=== PATIENT | male | born 1945 | race Caucasian/White ===

== ENCOUNTER 2018-10-13 11:36 | Inpatient (IN) | payer MEDICARE, BC ==
[~2018-10-13] VITALS: Ht 177.8 cm; Wt 80.3 kg
[2018-10-13] VITALS (18 sets, daily range): BP systolic 103–138; BP diastolic 51–75; BMI 26.4
--- NOTE | ~2018-10-13 | OP ---
PATIENT NAME: AIDA BLACKMON MEDICAL RECORD: [id number] :49 LOCATION:[facility] ADMISSION DATE:10/13/18 SURGEON: SHANTHI AVILA MD DATE OF OPERATION: 10/13/2018 PROCEDURES: 1. PTCA and stent, RCA PLV. 2. Left heart catheterization. 3. Selective coronary angiography. 4. Left ventriculogram. INDICATION: Non-Q-wave myocardial infarction. DESCRIPTION OF PROCEDURE: After informed consent was obtained with detailed explanation of risks and benefits as well as alternative therapies, the patient elected to proceed with angiogram and angioplasty. The right femoral area was prepped and draped in normal sterile fashion. The right femoral artery was cannulated via modified Seldinger technique with placement of 6-Belarusian sheath. All catheters were exchanged through this sheath. FINDINGS: Left ventriculogram performed in standard 30-degree NANCE view reveals global hypokinesis. Ejection fraction 40%. SELECTIVE CORONARY ANGIOGRAPHY: 1. Left main has got a questionable stenosis. It will be better delineated by IVUS. 2. Left anterior descending has a large diagonal system. It has 95% stenosis at the ostium. 3. Left circumflex appears to have 90% stenosis at the ostium and the ramus intermedius as well has 90% stenosis at the ostium. 4. First obtuse marginal has 80% to 90% stenosis in the mid proximal vessel. 5. Right coronary has very large bifurcating PLV system. Both branches have DELMI 1 flow with 95% to 99% stenosis. PTCA AND STENT OF THE PLV: The inferior branch was addressed with a 2.0 x 26 and a 2.0 x 26, both Garfield stents. Result was 0% residual stenosis. Superior branch of the PLV was addressed with a 2.5 x 8 mm Garfield. Result was 0% residual stenosis. OVERALL IMPRESSION: Successful PTCA and stent of the RCA PLV, going from 99% initial stenosis with DELMI 1 flow to 0% residual stenosis with methodist of DELMI 3 flow. TRANSINT:[id number] Voice Confirmation ID: [id number] DOCUMENT ID: [id number] SHANTHI AVILA MD CC: [id number] DICTATION DATE: 10/13/18 1546 DIGITAL PRODUCTION ARTIST: 10/13/18 1754 [place] [address]
--- NOTE | ~2018-10-13 | EC ---
PATIENT:AIDA BLACKMON DATE OF SERVICE: 10/13/18 SEX: M MEDICAL RECORD: [id number] DATE OF : [birth year] LOCATION:[place] [address] AGE OF PATIENT: 73 ADMISSION DATE: 10/13/18 REFERRING PHYSICIAN: INTERPRETING PHYSICIAN: SHANTHI QUAN MD ECHOCARDIOGRAM REPORT ECHO CHARGES 4 ECHO COMPLETE Date: 10/14/18 CLINICAL DIAGNOSIS: ME ECHOCARDIOGRAPHIC MEASUREMENTS (adult normal given) AC root (d.<3.7cm) 2.9 cm LV Septum d (<1.2 cm> 0.9 cm Valve Excursion 1.9 cm LV Septum (systole) 1.2 cm Left Atria (s.<4.0cm> 4.3 cm LVPW d(<1.2cm) 1.1 cm RV (d.<2.3cm) 3.6 cm LVPW (sytole) 1.4 cm LV diastole(<5.6CM) 6.2 cm MV E-F(>70mm/sec) cm LV systole 5.0 cm LVOT Diameter 2.2 cm MV exc.(>10mm) cm Est.ejection fraction (50-75%) % DOPPLER: LVIT cm/sec A 57 cm/sec E 48 cm/sec LA cm/sec RVSP 36.6 mmHg LVOT 109 cm/sec AOP1/2T m/s Asc. Ao 125 cm/sec RVOT 64 cm/sec RA cm/sec PA 88 cm/sec AV Gradient Peak 6.2 mmHg AV Mean 3.3 mmHg AV Area 3.1 cm MV Gradient Peak 2.4 mmHg MV Mean 1.3 mmHg MV Area cm COMMENTS: Automatic Buffing Wheel Former: Sarita MCKENZIE Railcar Switcher: 1 Dr. Quan TAPE# PACS Pericardial Effusion N DATE OF SERVICE: 10/14/2018 DATE OF SERVICE: 10/14/2018 FINDINGS: 1. Left ventricular chamber size is dilated. Left ventricular systolic function is moderately reduced to severely reduced at 30%. 2. Left atrium is enlarged at 4.3 cm. Right atrium and right ventricular chamber sizes are as well mildly dilated. 3. Valvular structures have normal structure and motion. ECHOCARDIOGRAM REPORT [id number] AIDA BLACKMON 4. Doppler interrogation reveals mild mitral regurgitation, mild tricuspid regurgitation, no other valvular insufficiency or stenosis. Pulmonary systolic pressure is estimated at 37 mmHg. 5. No evidence of pericardial effusion or left ventricular thrombus. TRANSINT:[id number] Voice Confirmation ID: [id number] DOCUMENT ID: [id number] SHANTHI QUAN MD CC: [id number] DICTATION DATE: 10/14/18 1025 HOMEMAKING REHABILITATION CONSULTANT: 10/14/18 1047 ADM IN [facility] [address] [place] [address]
--- NOTE | ~2018-10-13 | DS ---
PATIENT:AIDA BLACKMON :49 MEDICAL RECORD: [id number] DISCHARGE SUMMARY ADMISSION DATE: 10/13/18 DISCHARGE DATE: 10/14/18 DIAGNOSES: 1. Non-Q-wave myocardial infarction. 2. Coronary artery disease. 3. Percutaneous transluminal coronary angioplasty and stent to the right coronary artery this admission. 4. Ischemic cardiomyopathy. BRIEF HISTORY: Mr. Blackmon presents with anginal symptomatology. Troponin did increase to 10, he underwent cardiac catheterization revealing subtotal stenosis of the PLV branch of the RCA. This was a long branch extending to the lateral wall and he underwent successful PTCA and stents of these branches, he had no further anginal symptomatology. He is already on carvedilol, was discharged home with the addition of aspirin, Plavix, pravastatin to his medical regimen. Will follow up with [facility] on Saturday for PTCA and stent of circumflex and LAD diagonal. TRANSINT:[id number] Voice Confirmation ID: [id number] DOCUMENT ID: [id number] SHANTHI AVILA MD CC: [id number] DICTATION DATE: 10/14/18 1040 MANAGER TALENT MANAGEMENT: 10/14/18 2346 DIS IN 10/14/18 [place] [address] [place] [address]
--- NOTE | ~2018-10-13 | HEMODYNAMI ---
PATIENT:AIDA BLACKMON MEDICAL RECORD: [id number] : 49 LOCATION:[place] [address] ADMISSION DATE: 10/13/18 Generatedon:10/13/201815:43 Patient name: AIDA BLACKMON Patient #: [id number] SSN: : 1945 Date of study: 10/13/2018 Page: Of Hemodynamic Procedure Report Patient Data Patient Demographics Procedure consent was obtained First Name: AIDA Gender: Male Last Name: LORRI : 1945 [facility] Initial: OTIS Age: 73 year(s) Patient #: [id number] Race: Additional ID: [id number] Contact details Address: [place] [address] State: [place] City: [place] Zip code: [address] Past Medical History Allergies: No known allergies Admission Admission Data Admission Date: 10/13/2018 Admission Time: 12:23 Room #: [facility] Weight (lbs.): 169.76 Weight (kg.): 77 Procedure Procedure Types Cath Procedure Diagnostic Procedure [facility] w/Coronaries PCI Procedure Coronary Stent Coronary Stent Initial Procedure Description Procedure Date Procedure Date: 10/13/2018 Procedure Start Time: 15:07 Procedure End Time: 15:42 Procedure Staff Name Function Daniel Quan MD Performing Physician Darinel Starr RT Monitor Jillian Sun RT Scrub Brittany Belcher RN Nurse Procedure Data Cath Procedure Fluoroscopy Diagnostic fluoroscopy Total fluoroscopy Time: 8.9 time: 8.9 min min Diagnostic fluoroscopy Total fluoroscopy dose: dose: 1588 mGy 1588 mGy Contrast Material Contrast Material Type Amount (ml) Isovue 300 163 Entry Location Entry Primary Successful Side Size Upsize Upsize Entry Closure Succes sful Closure Location (Fr) 1 (Fr) 2 (Fr) Remarks Device Remarks Femoral Right 6 Fr 6 Fr Exoseal artery Short Long Estimated blood loss: 20 ml Diagnostic catheters Device Type Used For End Catheter Placement MULTIPACK Pigtail 5 Fr Procedure catheter MULTIPACK JL 4.0 5Fr Procedure catheter MULTIPACK 3DRC 5Fr Procedure catheter Procedure Medications Medication Administration Route Dosage 0.9% NaCl I.V. 100 ml/hr Oxygen etCO2 Nasal cannula 2 l/min Lidocaine 2% added to field 20 Heparin Flush Bag added to field 2 bags (1000units/500ml NS) Versed I.V. 2 mg Fentanyl I.V. 50 mcg Heparin Bolus I.V. 5000 units Fentanyl I.V. 50 mcg Hemodynamics Rest Heart Rate: 70 (bpm) Snapshots Pre Cath Intra NCS Post Cath Vital Signs Time Heart Resp SPO2 etCO2 NIBP (mmHg) Rhythm Pain Sedation Rate (ipm) (%) (mmHg) Status Level (bpm) 14:55:44 66 13 97 30 139/96(117) NSR 0 (11) 10(A) , No pain 14:59:43 63 12 97 35.2 136/71(107) NSR 0 (11) 10(A) , No pain 15:03:45 70 18 98 17.2 127/63(89) NSR 0 (11) 10(A) , No pain 15:07:47 63 17 98 30 121/62(86) NSR 0 (11) 10(A) , No pain 15:11:47 65 17 97 23.9 112/62(89) NSR 0 (11) 9(A) , No pain 15:16:29 63 17 98 32.2 120/57(90) NSR 0 (11) 9(A) , No pain 15:20:33 66 12 97 32.2 104/57(78) NSR 0 (11) 9(A) , No pain 15:25:16 64 11 97 33.7 112/64(79) NSR 0 (11) 9(A) , No pain 15:29:11 57 17 98 29.2 115/67(88) NSR 0 (11) 10(A) , No pain 15:33:04 56 16 95 32.2 118/75(96) NSR 0 (11) 10(A) , No pain 15:37:00 56 17 95 33.7 117/71(85) NSR 0 (11) 10(A) , No pain 15:41:00 59 17 94 32.2 116/71(88) NSR 0 (11) 10(A) , No pain Medications Time Medication Route Dose Verified Delivered Reason Notes Effectiveness by by 14:55:03 0.9% NaCl I.V. 100 Daniel Brittany used for ml/hr Avelina Belcher stain remover 14:55:10 Oxygen etCO2 2 Daniel Brittany used for Nasal l/min Avelina Belcher procedure cannula RN 14:55:15 Lidocaine 2% added 20ml Daniel Daniel for local to vial Avelina Quan MD anesthetic field 14:55:20 Heparin Flush added 2 Daniel Daniel used for Bag to bags Avelina Quan MD procedure (1000units/500ml field NS) 15:03:17 Versed I.V. 2 mg Daniel Brittany for sedation Avelina Belcher RN 15:03:23 Fentanyl I.V. 50 Daniel Brittany for sedation mcg Avelina Belcher RN 15:08:12 Fentanyl I.V. 50 Daniel Brittany for sedation mcg Avelina Belcher RN 15:13:56 Heparin Bolus I.V. 5000 Daniel Brittany for verif ied units Avelina Belcher anticoagulation with Dr. JIMMY Quan Procedure Log Time Note 14:35:16 Time tracking: Regular hours (M-F 7:00 - 5:00) 14:35:19 Plan of Care:Hemodynamics will remain stable., Cardiac rhythm will remain stable., Comfort level will be maintained., Respiratory function will remain adequate., Patient/ family verbilizes understanding of procedure., Procedure tolerated without complication., Recovers from procedure without complications.. 14:35:21 Signed procedure consent form obtained from patient. 14:35:48 Darinel Starr RT(R) (CV) sent for patient. Start room use. 14:36:49 Patient Weight : 169.76 lbs 14:37:13 Procedure Status Urgent Heart Cath (IP). 14:46:38 Patient received from ED to CCL 2 Alert and oriented. Tansferred to table in Supine position. 14:46:39 Warm blankets applied, and hugo hugger turned on for patient comfort. 14:46:39 Correct patient and procedure confirmed by team. 14:46:40 ECG and BP/O2 sat monitors applied to patient. 14:54:52 Vital chart was started 14:55:03 0.9% NaCl 100 ml/hr I.V. was administered by Brittany Belcher RN; used for procedure; 14:55:10 Oxygen 2 l/min etCO2 Nasal cannula was administered by Brittany Belcher RN; used for procedure; 14:55:15 Lidocaine 2% 20ml vial added to field was administered by Daniel Quan MD; for local anesthetic; 14:55:20 Heparin Flush Bag (1000units/500ml NS) 2 bags added to field was administered by Daniel Quan MD; used for procedure; 14:58:23 Baseline sample Acquired. 14:58:35 Rhythm: sinus rhythm , bigeminy 14:58:37 Full Disclosure recording started 14:58:46 H&P Date Dictated: 10/13/2018 ER History on chart.. 14:58:49 Pre-procedure instructions explained to patient. 14:58:50 Pre-op teaching completed and patient verbalized understanding. 14:58:54 Family in waiting room. 14:59:03 Patient NPO since Breakfast. 14:59:09 Patient allergic to No known allergies 14:59:13 Is the patient allergic to Iodine/contrast media? No. 15:00:35 Is patient on blood thinner?Yes 15:00:45 ACC The patient was administered the following blood thiners within the last 24 hours: ACCPlavix 15:00:50 Patient diabetic? No. 15:00:53 ----Pre-sedation anethsthesia assessment.---- 15:00:55 Previous problem with sedation/anesthesia? No ? 15:00:57 Snore? Yes 15:00:58 Sleep apnea? Yes 15:01:00 Deviated septum? No 15:01:01 Opens mouth fully? Yes 15:01:02 Sticks out tongue? Yes 15:01:05 Airway obstruction? No ? 15:01:09 Dentures? No ? 15:01:18 IV patent on arrival in right forearm with 0.9% NaCl at [facility]. 15:01:50 Right groin area was prepped with chlora-prep and draped in sterile fashion 15:01:51 Alarms reviewed by RNavi N. 15:01:52 Sharps counted by scrub and verified by R.N. 15:02:16 Physician arrived 15:02:16 --------ALL STOP TIME OUT------ 15:02:17 Final Timeout: patient, procedure, and site verified with staff and physician. All members of the team are in agreement. 15:02:19 Right groin site verified by team. 15:02:25 Fire Safety Assessment: A--An alcohol-based skin anteseptic being used preoperatively., C--Open oxygen or nitrous oxide is being used., D--An ESU, laser, or fiber-optic light is being used. 15:02:58 Physical assessment completed. ASA score P 2 - A patient with mild systemic disease as per Daniel Quan MD. 15:03:17 Versed 2 mg I.V. was administered by Brittany Belcher RN; for sedation; 15:03:23 Fentanyl 50 mcg I.V. was administered by Brittany Belcher RN; for sedation; 15:05:59 Sedation plan: IV Moderate Sedation Medication:Versed, Fentanyl 15:06:43 Use device set Femoral Dx 15:06:44 ACIST Syringe (58183) opened to sterile field. 15:06:45 Bag Decanter (2002S) opened to sterile field. 15:06:45 Medline Cath Pack ([id number]) opened to sterile field. 15:06:47 ACIST Hand Control (70595) opened to sterile field. 15:06:48 ACIST Manifold (72829) opened to sterile field. 15:06:49 DIAGNOSTIC Multipack 5Fr catheter set (PA8135) opened to sterile field. 15:06:50 Tegaderm 4 x 4 (1626W) opened to sterile field. 15:06:52 EMERALD Guide Wire (832-377) opened to sterile field. 15:07:06 SHEATH 6FR Kenna (HZO590) opened to sterile field. 15:07:13 Procedure started. 15:07:17 Local anesthetic to right femoral artery with Lidocaine 2% by Daniel Quan MD.INITIAL ACCESS ONLY 15:07:29 A 6 Fr Short sheath was inserted into the Right Femoral artery 15:07:42 A MULTIPACK Pigtail 5 Fr catheter was advanced over the wire and used for Procedure. 15:07:46 LV hemodynamics recorded. 15:07:54 EF : 40 % 15:07:58 LV gram done using NANCE 15:08:01 Catheter removed. 15:08:12 Fentanyl 50 mcg I.V. was administered by Brittany Ye RN; for sedation; 15:08:14 A MULTIPACK JL 4.0 5Fr catheter was advanced over the wire and used for Procedure. 15:08:40 LCA angiography performed. 15:09:37 Catheter removed. 15:09:51 A MULTIPACK 3DRC 5Fr catheter was advanced over the wire and used for Procedure. 15:10:41 RCA angiography performed. 15:12:24 CHOICE PT Extra Support 182cm wire ([id number]) opened to sterile field. 15:12:25 GUIDE 6FR HS II SH catheter ([id number]) opened to sterile field. 15:12:26 INFLATOR Merit BasixCompak (HE1729) opened to sterile field. 15:12:39 Catheter removed. 15:12:41 Proceeding to intervention. 15:13:56 Heparin Bolus 5000 units I.V. was administered by Brittany Belcher RN; for anticoagulation; verified with Dr. Quan 15:14:03 Pre PCI Site: [place] PLB has 99% stenosis. 15:14:52 6 Fr HS2 SH guide catheter was inserted over the wire 15:15:07 Guide Catheter removed. unable to cannulate vessel. 15:15:20 GUIDE 6FR AR 2.0 SH catheter ([id number]) opened to sterile field. 15:15:32 6 Fr AR 2 SH guide catheter was inserted over the wire 15:15:37 Guide Catheter removed. unable to cannulate vessel. 15:15:56 SHEATH 6FR ARROW 45cm (CL-81194) opened to sterile field. 15:16:12 Sheath upsized to a 6 Fr Long. 15:16:39 6 45 ARROW ADVANCED 15:16:52 6 Fr AR 2 SH guide catheter was inserted over the wire 15:17:27 CHOICE wire advanced. 15:18:43 Wire advanced across lesion. 15:20:28 Inflate balloon Inflation number: 1 A EUPHORA 2.0 x 15 Balloon ([id number]) was prepped and advanced across the 1st RPL 100, then inflated to 11 GAIL for 0:10 (min:sec) 80. 15:21:36 Inflation number: 2 The EUPHORA 2.0 x 15 Balloon ([id number]) was reinflated across the 1st RPL 80, to 13 GAIL for 0:10 (min:sec) . 15:21:42 Balloon removed over the wire. 15:22:54 Inflate balloon Inflation number: 3 A EUPHORA 1.5 x 15 Balloon ([id number]) was prepped and advanced across the 1st RPL 80, then inflated to 17 GAIL for 0:10 (min:sec) . 15:23:08 Inflation number: 4 The EUPHORA 1.5 x 15 Balloon ([id number]) was reinflated across the 1st RPL , to 21 GAIL for 0:10 (min:sec) . 15:23:33 Balloon removed over the wire. 15:25:39 Place stent Inflation Number: 5 A MARCIE RX 2.0 x 26 stent ([id number]) was prepped and advanced across the 1st RPL 80. The stent was deployed at 11 GAIL for 0:10 (min:sec) 0. 15:26:36 Stent catheter was removed intact over wire. 15:27:09 Place stent Inflation Number: 6 A MARCIE RX 2.0 x 26 stent ([id number]) was prepped and advanced across the 1st RPL 80. The stent was deployed at 15 GAIL for 0:10 (min:sec) 0. 15:27:47 Stent catheter was removed intact over wire. 15:30:47 Place stent Inflation Number: 7 A MARCIE RX 2.5 x 08 stent ([id number]) was prepped and advanced across the 1st RPL 80. The stent was deployed at 13 GAIL for 0:10 (min:sec) 0. 15:31:41 Stent catheter was removed intact over wire. 15:31:42 Wire removed. 15:31:44 Guide catheter removed. 15:32:15 BACK IN WITH SHORT SHEATH, 6 45 ARROW REMOVED INTACT 15:32:28 EXOSEAL 6Fr (EX600) opened to sterile field. 15:32:54 Sheath removed intact; hemostasis achieved with Exoseal to the Right Femoral artery. 15:32:58 Procedure ended.(Physican Out) 15:33:40 Fluoroscopy time 08.90 minutes. 15:33:57 Fluoroscopy dose: 1588 mGy 15:33:57 Flurop Dose total: 1588 15:35:08 Dose Area Product 45581 mGy/cm. 15:36:40 Cumulative Air Kerma 111mGy. 15:36:49 Contrast amount:Isovue 300 163ml. 15:36:59 Sharps counted by scrub and verified by R.N. 15:39:11 Procedure type changed to Cath procedure, Diagnostic procedure, LHC, LHC w/Coronaries, PCI procedure, Coronary Stent, Coronary Stent Initial 15:40:45 Insertion/operative site no bleeding no hematoma. 15:40:49 Post-op/insertion site Right Femoral artery dressed using a 4 x 4 and Tegaderm. 15:40:54 Post right femoral artery:stable 15:41:07 Post procedure: right dorsailis pedis pulse 2+ Normal; easily identifiable; not easily obliterated. 15:41:12 Post-procedure physical assessment completed. ASA score P 2 - A patient with mild systemic disease as per Daniel Quan MD. 15:41:18 Post procedure rhythm: sinus rhythm 15:41:21 Estimated blood loss: 20 ml 15:41:23 Post procedure instruction explained to patient.Patient verbalizes understanding. 15:41:32 Patient needs reinforcement of post procedure teaching. 15:42:02 Procedure and supply charges have been captured, reviewed, submitted and are correct. 15:42:02 Vital chart was stopped 15:42:04 See physician's report for complete and final results. 15:42:17 Report given to CVICU. 15:42:22 Patient transfered to CVICU with Bed. 15:42:24 Procedure ended. 15:42:24 Full Disclosure recording stopped 15:42:28 End room use (Document Last) Intervention Summary Intervention Notes Time ActionType Lesion and Equipment Used Action# Pressure Duration Attributes 15:20:28 Inflate 1st RPL EUPHORA 2.0 x 1 11 00:10 balloon 15 Balloon ([id number]) 15:21:36 Reinflate 1st RPL EUPHORA 2.0 x 2 13 00:10 balloon 15 Balloon ([id number]) 15:22:54 Inflate 1st RPL EUPHORA 1.5 x 3 17 00:10 balloon 15 Balloon ([id number]) 15:23:08 Reinflate 1st RPL EUPHORA 1.5 x 4 21 00:10 balloon 15 Balloon ([id number]) 15:25:39 Place stent 1st RPL MARCIE RX 2.0 x 5 11 00:10 26 stent ([id number]) 15:27:09 Place stent 1st RPL MARCIE RX 2.0 x 6 15 00:10 26 stent ([id number]) 15:30:47 Place stent 1st RPL MARCIE RX 2.5 x 7 13 00:10 08 stent ([id number]) Device Usage Item Name Manufacture Quantity Catalog Number Hospital Part Current M inimal Lot# / Charge Number Stock Stock Serial# Code ACIST Syringe Acist 1 14351 841502 407527 391358 2 0 (86307) Medical Systems Inc Bag Decanter Microtek 1 2001S 410512 10540 775838 5 () Medical Inc. Medline Cath Medline 1 [id number] 491159 43544 049293 5 Pack ([id number]) ACIST Hand Acist 1 73853 347720 580909 491254 5 Control Medical (50672) Systems Inc ACIST Manifold Acist 1 94016 574923 846777 934780 5 (05604) Medical Systems Inc DIAGNOSTIC Cardinal 1 KL8643 593129 12848 555740 3 0 Multipack 5Fr Health catheter set (SA3952) Tegaderm 4 x 4 3M 1 1626W 801621 534052 209056 5 (1626W) EMERALD Guide Cardinal 1 502-455 640105 027164 701896 5 Wire (502-455) Health SHEATH 6FR Terumo 1 MEI283 847149 649150 310125 4 0 Kenna (UZX736) MULTIPACK Cardinal 1 725739 5 Pigtail 5 Fr Health catheter MULTIPACK JL Cardinal 1 303397 5 4.0 5Fr Health catheter MULTIPACK 3DRC Cardinal 1 275904 5 5Fr catheter Health CHOICE PT [place] 1 [id number] 442547 877541 079078 5 Extra Support Scientific 182cm wire ([id number]) GUIDE 6FR HS Medtronic 1 [id number] 466140 57382 651842 1 II SH catheter ([id number]) INFLATOR Merit Merit 1 AJ6335 026058 470146 484540 1 5 TechShop Medical (SD4341) GUIDE 6FR AR Medtronic 1 [id number] 682571 65801 983973 1 2.0 SH catheter ([id number]) SHEATH 6FR Teleflex 1 CL-82625 562566 952125 506708 5 ARROW 45cm (CL-81004) EUPHORA 2.0 x Medtronic 1 [id number] 659073 677118 586069 5 [id number] 15 Balloon ([id number]) EUPHORA 1.5 x Medtronic 1 [id number] 076882 757767 779246 5 [id number] 15 Balloon ([id number]) MARCIE RX 2.0 x Medtronic 2 [id number] 693815 7376687 428097 5 [id number] 26 stent [id number] ([id number]) MARCIE RX 2.5 x Medtronic 1 [id number] 687693 9070238 200520 5 [id number] 08 stent ([id number]) EXOSEAL 6Fr Cardinal 1 EX600 231228 154866 397713 1 0 (EX600) Health Signature Audit [place] Stage Time Signature Unsigned Intra-Procedure 10/13/2018 Darinel Starr 3:43:07 PM RT(R) (CV) Signatures Performing Physician : Signature : Daniel Quan MD Date : Time : Monitor : Darinel Starr RT Signature : Date : Time : Nurse : Brittany Belcher RN Signature : Date : Time : [facility] [address], [place] [address]
[2018-10-13] MEDS ORDERED: PROSCAR5 MG PO (12:06)
[2018-10-13] MEDS ORDERED: COREG6.25 MG PO (12:07)
[2018-10-13] MEDS ORDERED: CARDURA4 MG PO (12:07)
--- NOTE | 2018-10-13 12:20 | NUR ---
DEFIB PADS APPLIED TO PT PER VERBAL ORDER PER EDP AFTER PT'S HR REMAINED BRADYCARDIC AT 28-34BPM. PT REMAINS ALERT AND ORIENTED, CONTINUES TO DENY PAIN.
--- NOTE | 2018-10-13 14:12 | NUR ---
PT SITTING IN SEMI-BABIN'S, ALERT AND ORIENTED. NO SINGS OF DISTRESS. CALL LIGHT IN REACH, AWAITING BED ASSIGNMENT. WILL CONTINUE TO MONITOR.
[2018-10-13 14:37] LABS: CKMB 65.9 U/L (0.0-3.6); CREATINE KINASE 317 UL (21-232)
[2018-10-13 14:40] LABS: TROPONIN-I 10.375 ng/mL (0.000-0.060)
--- NOTE | 2018-10-13 16:00 | NUR ---
PT ARRIVED IN THE UNIT. PT VSS. PT IN A BIJIMINAL BEAT RATE 61. O2 AT 2L IV ANC. PT A&O X4. RIGHT GROIN DRESSING C/D/I. NO HEMATOMA NOTED. PT INSTRUCTED TO HAVE STRICT BED REST FOR 4HOURS PER DR AVILA. BILATEARL DP AND TP PULSES PALPABLE. CALL LIGHT IN REACH. WILL CONT POC.
--- NOTE | 2018-10-13 18:09 | NUR ---
GROIN SHOW NO S/SX OF HEMATOMA. SOFT AND PALPABLE. BILATERAL DP AND PT PULSES PALPABLE. VSS. WILL CONT POC.
--- NOTE | 2018-10-13 18:57 | NUR ---
PT TOLERATING ICE CHIPS AND PO FLUIDS WELL. GROIN SITE AND PULSES REMAIN UNCHANGED.
--- NOTE | 2018-10-13 19:08 | NUR ---
SPOKE WITH DR AVILA ABOUT THE PTS INSULIN ORDER. PT STATES HE IS NOT DIABETIC AND THAT HE DOES NOT TAKE INSULIN. INSULIN DC'D PER DR AVILA.
--- NOTE | 2018-10-13 19:15 | NUR ---
Received patient resting in bed with eyes open, assessment completed per flowsheet. Patient AO x4, answers appropriately/follows instructions. S1/S2 noted Sinus Prabhu on telemetry with HR 58, rythmic and regular. Breathing is even/unlabored on room air with O2 sat 95%, lung sounds clear throughout. R groin incision dressing CDI, soft to palpation with no bleeding/bruising noted. All pulses palpable with cap refill < 3 sec, skin warm/dry. Denies pain or other needs at this time, see flowsheet for details. All VSS and will continue to monitor.
[2018-10-13 20:34] LABS: CREATINE KINASE 270 UL (21-232)
[2018-10-13 20:35] LABS: TROPONIN-I 10.772 ng/mL (0.000-0.060)
--- NOTE | 2018-10-13 21:10 | NUR ---
Patient family at bedside, discussed post-op/discharge plans with all questions answered to satisfaction. Denies pain or other needs at this time, all VSS and will continue to monitor.
--- NOTE | 2018-10-13 23:05 | NUR ---
Reassessment completed per flowsheet, no changes noted from previous assessment. S1/S2 noted Sinus Prabhu on telemetry with HR 58, ryhtmic and regular. Breathing is even/unlabored on room air with O2 sat 93%, lung sounds clear throughout. R groin cath site soft to palpation, no bleeding/bruising noted. All pulses palpable with cap refill < 3 sec, skin warm/dry. Denies pain or other needs at this time, see flowsheet for details. All VSS and will continue to monitor.
[2018-10-14] VITALS (12 sets, daily range): BP systolic 99–122; BP diastolic 49–74; Ht 177.8 cm; Wt 80.3 kg
--- NOTE | 2018-10-14 01:10 | NUR ---
Patient assisted to bathroom at request, gait is upright/steady. No reported difficulties, R groin cath site dressing CDI, no bleeding/bruising observed. All VSS and will continue to monitor.
--- NOTE | 2018-10-14 01:45 | NUR ---
Patient rhythm change to Bigeminal PVC on telemetry, patient states no pain/discomfort at this time with BP 122/66 and HR 63.
--- NOTE | 2018-10-14 02:04 | NUR ---
Patient rhythm converted to NSR on telemetry with HR 69, will continue to monitor.
--- NOTE | 2018-10-14 02:55 | NUR ---
Patient rhythm no josy to be Sinus with Trigeminal PVC on telemetry, BP 107/47 with HR 70. Patient denies discomfort/pain at this time, no further needs and will continue to monitor.
--- NOTE | 2018-10-14 03:10 | NUR ---
Reassessment completed per flowsheet. Patient AO x4, answers appropriately/follows instructions. S1/S2 noted NSR with Trigeminal PVC noted on telemetry and HR 68, regular. Breathing is even/unlabored on room air with O2 sat 93%, lung sounds clear throughout. R groin incision dressing CDI, no bleeding/bruising noted. Denies pain/discomfort at this time, see flwosheet for details. All VSS and will continue to monitor.
--- NOTE | 2018-10-14 03:59 | NUR ---
Patient rhythm noted to be NSR with occasional PVC on telemetry and HR 68.
--- NOTE | 2018-10-14 06:15 | NUR ---
Cardiology on-call paged to notify of rhythm changes. Patient appears to have changes post activity, will discuss with physician and awaiting return call.
--- NOTE | 2018-10-14 07:00 | NUR ---
REPORT RECEVIED FROM THE OFF GOING RN. SEE ASSESSMENT IN THE PTS FLOW SHEET. PT ASSISTED OOB AND TO THE BATHROOM. PT NOTED TO HAVE A VERY STEADY AND NORMAL GAIT. VSS. BIGEMINAL RHYTHM NOTED. RIGHT GROIN SOFT TO PALPATION WITH NO BRUISING NOTED. PT DENIES PAIN. BILATERAL DP AND PT PULSES PALPABLE. CALL LIGHT IN REACH. WILL CONT POC.
--- NOTE | 2018-10-14 10:34 | HP ---
PATIENT: AIDA BLACKMON MEDICAL RECORD: [id number] ACCOUNT: [id number] LOCATION:[facility] EricCV06 : [birth year] ADMISSION DATE: 10/13/18 PCP: No PCP HISTORY AND PHYSICAL EXAMINATION DIAGNOSES: 1. Non-Q-wave myocardial infarction. 2. Coronary artery disease. 3. Hypertension. HISTORY OF PRESENT ILLNESS: This is a gentleman who began having chest discomfort yesterday, presented to [facility], has a troponin of 5. Upon arrival here, he did have some bradycardia, was given atropine. He is now with sinus rhythm at 70s. He has no ST depression, but he does have T-wave inversion in his lateral leads. PHYSICAL EXAMINATION: GENERAL APPEARANCE: Well-nourished, well-developed, appears stated age. Level of distress, comfortable. PSYCHIATRIC: Mental status, alert, normal affect. Orientation, oriented to time, place and person. EYES: Lids and conjunctiva, noninjected. No discharge, no pallor. ENT: Lips, teeth, gums, normal dentition. Oropharynx, no cyanosis, no pallor. NECK: Carotid arteries, bilateral normal upstroke, no bruits, no thrills. JUGULAR VEINS: No jugular venous pressure or distention. CERVICAL LYMPH NODES: Nontender, nonenlarged. THYROID: Not enlarged. Nontender. No nodules. LUNGS: Respiratory effort, unlabored. CHEST: Normal curvature. No thoracic deformity. No chest wall tenderness. Percussion, resonant. Auscultation, clear. No wheezes, no rales, no rhonchi. CARDIOVASCULAR: Precordial exam, nondisplaced. No heaves or pericardial thrills. Rate and rhythm, regular. Heart sounds, normal S1, normal S2. No S3, no gallop, no rub. Systolic murmur, not heard. Diastolic murmur, not heard. EXTREMITIES: No cyanosis, no edema. Peripheral pulses, full and equal in all extremities, except as noted. No bruits appreciated. ABDOMEN: Soft, nondistended. Normal aorta. No bruit. Nontender. No masses. Liver, nontender, no hepatomegaly. Spleen, nontender, no splenomegaly. MUSCULOSKELETAL: No joint tenderness. No joint swelling. No erythema. NEUROLOGICAL: Normal gait, normal strength, normal tone. SKIN: Warm and dry. OVERALL IMPRESSION: Non-Q-wave myocardial infarction. At this time, we will give him Plavix. He has gotten a dose of Lovenox. We will proceed with coronary angiography this afternoon. TRANSINT:[id number] Voice Confirmation ID: [id number] DOCUMENT ID: [id number] HISTORY AND PHYSICAL [id number] AIDA BLACKMON JEFFREY MD at 1034 CC: [id number] DICTATION DATE: 10/13/18 1238 MANAGER PHARMACY: 10/13/18 1322 ADM IN [facility] [address] [place] [address]
--- NOTE | 2018-10-14 10:38 | NUR ---
DR AVILA AT THE PTS BEDSIDE. DISCHARGE ORDERS RECIEVED. PT TO RETURN FOR HEART CATH SATURDAY. DR AVILA ALREADY CALLED AND MADE APPOINTMENTS FOR CATH.
--- NOTE | 2018-10-14 10:45 | NUR ---
DR AVILA GAVE VERBAL ORDERS TO DECREASE COEG TO 3.125 AND CARDURA TO 2MG.
[2018-10-14] MEDS ORDERED: CARDURA2 MG PO (11:16)
[2018-10-14] MEDS ORDERED: PLAVIX75 MG PO (11:16)
[2018-10-14] MEDS ORDERED: COREG 3.1253.125 MG PO (11:16)
[2018-10-14] MEDS ORDERED: BAYER CHEWABLE81 MG PO (11:17)
[2018-10-14] MEDS ORDERED: PRAVACHOL40 MG PO (11:17)
--- NOTE | 2018-10-14 12:08 | MORECARE ---
CASE MANAGEMENT DISCHARGE SUMMARY PATIENT: AIDA BLACKMON UNIT: [id number] ADM DATE: 10/13/18 AGE: 73 : 47 SEX: M [facility] AUTHOR: ANGELA LINDSEY PHYSICIAN: REFERRING PHYSICIAN: SHANTHI AVILA MD DATE OF SERVICE: 10/14/18 Discharge Plan Patient Name: AIDA BLACKMON Facility: [facility]:[place] : 1945 Planned Disposition: Home Anticipated Discharge Date: Discharge Date: Expected LOS: Initial Reviewer: [email or web address] Initial Review Date: 10/14/2018 Generated: 10/14/18 1:08 pm Patient Name: AIDA BLACKMON Page [id number] at 1208 All edits/amendments must be made on the electronic document DICTATION DATE: 10/14/18 120 NON DESTRUCTIVE EVALUATION MANAGER: BERKLEY 10/14/18 1208 RPT#: [id number] DC DATE: STATUS: ADM IN [facility] [address] [place] [address] END OF REPORT
--- NOTE | 2018-10-14 12:16 | MORECARE ---
CASE MANAGEMENT DISCHARGE SUMMARY PATIENT: AIDA BLACKMON UNIT: [id number] ADM DATE: 10/13/18 AGE: 73 : [birth year] SEX: M ROOM/BED: D[facility] AUTHOR: ROSALIA,DOC PHYSICIAN: REFERRING PHYSICIAN: SHANTHI AVILA MD DATE OF SERVICE: 10/14/18 Discharge Plan Patient Name: AIDA BLACKMON Facility: [facility]:[place] : 1945 Planned Disposition: Home Anticipated Discharge Date: Discharge Date: Expected LOS: Initial Reviewer: [email or web address] Initial Review Date: 10/14/2018 Generated: 10/14/18 1:16 pm Comments DCP- Discharge Planning Updated by [email or web address]: Jazlyn Iglesias on 10/14/18 11:[address] Patient Name: AIDA BLACKMON Admission Status: ER Accout number: [id number] Admission Date: 10-13-2018 : 1945 Admission Diagnosis: Attending: FEI AVILA Current LOS: 1 Anticipated DC Date: Planned Disposition: Home Primary Insurance: MEDICARE A & B Discharge Planning Comments: CM met with patient and spouse (Oralia) at bedside after explaining CM role and obtaining verbal consent. Patient lives at home with his and plans to return there upon discharge. Patient feels this would be a safe discharge. CM discussed availability / needs of home health and medical equipment. Patient denies any discharge needs at this time. Patient states he will have his drive him home upon discharge. CM will continue to follow and assist as needed with discharge planning / needs. Chest Pain Coordinator: Jazlyn Iglesias DCPIA - Discharge Planning Initial Assessment Updated by [email or web address]: Jazlyn Iglesias on 10/14/18 12:08 pm * Is the patient Alert and Oriented? Yes * How many steps to enter\exit or inside your home? * PCP DR. MARTINEZ * Pharmacy [facility] * Preadmission Environment Home with Family * ADLs Independent * Equipment None * Other Equipment B/P CUFF * List name and contact numbers for known caregivers / representatives who currently or will assist patient after discharge: CHRISTINA BLACKMON - SPOUSE- [phone] * Verbal permission to speak to the caregivers and representatives has been obtained from the patient. Yes * Community resources currently utilized None * Additional services required to return to the preadmission environment? No * Can the patient safely return to the preadmission environment? Yes * Has this patient been hospitalized within the prior 30 days at any hospital? No Last DP export: 10/14/18 11:08 a Patient Name: AIDA BLACKMON Page 22551 at 1216 All edits/amendments must be made on the electronic document DICTATION DATE: 10/14/18 1216 INDUCTION COORDINATION ENGINEER: BERKLEY 10/14/18 1216 RPT#: [id number] DC DATE: STATUS: ADM IN [facility] [address] [place] [address] END OF REPORT
--- NOTE | 2018-10-14 12:17 | NUR ---
IV DC WITH THE CATHETER TIP INTACT. DC INSTRUCTIONS WENT OVER WITH THE PT. INSTRUCTED THAT HE IS TO TAKE HALF OF HIS COREG AND CARDURA PRESCRIBED. DR AVILA ALREADY MADE F/U CATH APPOINTMENT AT 0900 R SATURDAY AND PT AWARE. PLAVIX AND PRAVACHL RX GIVEN TO THE PT. PT LEFT THE UNIT IN A STABLE CONDITION. WILL CONT POC.
== END 2018-10-14 12:27 | disposition home or self-care (01) | DRG 247 ==
LOC: D.ER 11:36 → D.M2 12:23 → OBSVTIME 12:31 → D.CVICU 12:51
PROVIDERS: Emergency Medicine; ADMIT Internal Medicine Interventional Cardiology; ATTEND Internal Medicine Interventional Cardiology
PROC: B2151ZZ Fluoroscopy of Left Heart using Low Osmolar Contrast (ICD-10-PCS; 2018-10-13)
PROC: 4A023N7 Measurement of Cardiac Sampling and Pressure, Left Heart, Percutaneous Approach (ICD-10-PCS; 2018-10-13)
PROC: 027036Z Dilation of Coronary Artery, One Artery with Three Drug-eluting Intraluminal Devices, Percutaneous Approach (ICD-10-PCS; principal; 2018-10-13 14:35)
PROC: B2111ZZ Fluoroscopy of Multiple Coronary Arteries using Low Osmolar Contrast (ICD-10-PCS; 2018-10-13 14:35)
DX: I21.4 Non-ST elevation (NSTEMI) myocardial infarction (principal); I10 Essential (primary) hypertension; I25.10 Atherosclerotic heart disease of native coronary artery without angina pectoris; I25.5 Ischemic cardiomyopathy

== ENCOUNTER 2018-10-17 08:52 | Outpatient (CLI) | payer MEDICARE, BC ==
[~2018-10-17] VITALS: Ht 177.8 cm; Wt 77.3 kg
--- NOTE | ~2018-10-17 | HEMODYNAMI ---
PATIENT:AIDA BLACKMON MEDICAL RECORD: [id number] : 49 LOCATION:[facility] ADMISSION DATE: 10/17/18 Generatedon:10/17/201811:40 Patient name: AIDA BLACKMON Patient #: [id number] SSN: [id number] : 1945 Date of study: 10/17/2018 Page: Of Hemodynamic Procedure Report Patient Data Patient Demographics Procedure consent was obtained First Name: AIDA Gender: Male Last Name: LORRI : 1945 Middle Initial: OTIS Age: 73 year(s) Patient #: [id number] Race: SSN: [id number] Additional ID: [id number] Contact details Address: [place] [address] State: [place] City: [place] Zip code: [address] Past Medical History History of disease Date Diagnosis Comments CAD Allergies: No known allergies Admission Admission Data Admission Date: 10/17/2018 Admission Time: 8:52 Lab Results Lab Result Date: 10/17/2018 Lab Result Time: 0:00 Biochemistry Name Units Result Min Max BUN mg/dl 16 --(---*)-- 7 18 Creatinine mg/dl 1 --(--*-)-- 0.6 1.3 eGFR ml/min 78 *-(----)-- 90 120 NONAFRICAN CBC Name Units Result Min Max Hematocrit % 46.5 --(-*--)-- 42 54 Hemoglobin g/dl 16.4 --(--*-)-- 13.5 17.5 Procedure Procedure Types Cath Procedure Diagnostic Procedure FFR/IVUS Intra-Coronary IVUS Initial Sedation Charges Moderate Sedation up to 15 minutes PCI Procedure Coronary Stent Coronary Stent Initial x2 Coronary Stent Additional Procedure Description Procedure Date Procedure Date: 10/17/2018 Procedure Start Time: 11:14 Procedure End Time: 11:38 Procedure Staff Name Function Daniel Quan MD Performing Physician Jillian Sun RT Monitor Gibson Kiser RT Scrub Brittany Belcher RN Nurse Procedure Data Cath Procedure Fluoroscopy Diagnostic fluoroscopy Total fluoroscopy Time: 7.8 time: 7.8 min min Diagnostic fluoroscopy Total fluoroscopy dose: 745 dose: 745 mGy mGy Contrast Material Contrast Material Type Amount (ml) Isovue 300 181 Entry Location Entry Primary Successful Side Size Upsize Upsize Entry Closure Succes sful Closure Location (Fr) 1 (Fr) 2 (Fr) Remarks Device Remarks Femoral Left 7 Fr Exoseal artery Short Estimated blood loss: 10 ml Procedure Complications No complications Procedure Medications Medication Administration Route Dosage 0.9% NaCl I.V. 100 ml/hr Oxygen etCO2 Nasal cannula 2 l/min Lidocaine 2% added to field 20 Heparin Flush Bag added to field 2 bags (1000units/500ml NS) Versed I.V. 2 mg Fentanyl I.V. 50 mcg Fentanyl I.V. 50 mcg Heparin Bolus I.V. 4000 units Versed I.V. 2 mg Hemodynamics Rest HGB: 16.4 (g/dl) Heart Rate: 62 (bpm) Snapshots Pre Cath Intra NCS Post Cath Vital Signs Time Heart Resp SPO2 etCO2 NIBP (mmHg) Rhythm Pain Sedation Rate (ipm) (%) (mmHg) Status Level (bpm) 10:51:09 61 14 98 31.5 140/79(123) NSR 0 (11) 10(A) , No pain 10:55:32 62 16 97 30.8 136/74(117) NSR 0 (11) 10(A) , No pain 10:59:52 55 22 98 32.3 126/72(100) SB 0 (11) 10(A) , No pain 11:04:08 53 13 98 33.8 122/71(100) SB 0 (11) 10(A) , No pain 11:08:24 57 16 98 31.5 119/70(99) SB 0 (11) 10(A) , No pain 11:12:36 60 17 98 30.8 120/75(96) NSR 0 (11) 10(A) , No pain 11:16:50 56 14 97 32.2 126/72(107) NSR 0 (11) 9(A) , No pain 11:21:38 70 17 98 33 129/89(109) NSR 0 (11) 9(A) , No pain 11:26:37 68 14 97 31.5 Measuring NSR 0 (11) 9(A) , No pain 11:26:56 60 14 98 34.5 134/84(118) NSR 0 (11) 9(A) , No pain 11:31:08 66 15 98 33.8 129/83(110) NSR 0 (11) 10(A) , No pain 11:35:18 63 14 93 33.8 115/63(85) NSR 0 (11) 10(A) , No pain 11:39:26 59 14 94 33 122/72(97) NSR 0 (11) 10(A) , No pain Medications Time Medication Route Dose Verified Delivered Reason Notes Effectiveness by by 10:50:21 0.9% NaCl I.V. 100 Daniel Brittany used for ml/hr Avelina Belcher mental hygienist 10:50:28 Oxygen etCO2 2 Daniel Brittany used for Nasal l/min Avelina Belcher procedure cannula RN 10:50:34 Lidocaine 2% added 20ml Daniel Daniel for local to vial Avelina Quan MD anesthetic field 10:50:40 Heparin Flush added 2 Daniel Daniel used for Bag to bags Avelina Quan MD procedure (1000units/500ml field NS) 11:09:22 Versed I.V. 2 mg Daniel Brittany for sedation Avelina Belcher RN 11:09:32 Fentanyl I.V. 50 Daniel Brittany for sedation mcg Avelina Belcher RN 11:14:40 Fentanyl I.V. 50 Daniel Brittany for sedation mcg Avelina Belcher RN 11:14:51 Versed I.V. 2 mg Daniel Brittany for sedation Avelina Belcher RN 11:15:45 Heparin Bolus I.V. 4000 Daniel Brittany for verif ied units Avelina Belcher anticoagulation with Dr. JIMMY Quan Procedure Log Time Note 10:40:34 Informed consent obtained and on chart 10:40:56 Procedure Status Elective Heart Cath (OP). 10:40:58 Gibson Kiser RT(R) sent for patient. Start room use. 10:40:58 Time tracking: Regular hours (M-F 7:00 - 5:00) 10:41:01 Plan of Care:Hemodynamics will remain stable., Cardiac rhythm will remain stable., Comfort level will be maintained., Respiratory function will remain adequate., Patient/ family verbilizes understanding of procedure., Procedure tolerated without complication., Recovers from procedure without complications.. 10:43:19 Patient allergic to No known allergies 10:43:45 Lab Result : Hemoglobin 16.4 g/dl 10::45 Lab Result : Hematocrit 46.5 % 10:43:45 Lab Result : eGFR NONAFRICAN 78 ml/min 10:43:45 Lab Result : BUN 16 mg/dl 10::45 Lab Result : Creatinine 1 mg/dl 10:43:54 Procedure type changed to Cath procedure, Diagnostic procedure, FFR/IVUS, Intra-Coronary IVUS Initial, Sedation Charges, Moderate Sedation up to 15 minutes, PCI procedure, Coronary Stent, Coronary Stent Initial x2, Coronary Stent Additional 10:44:02 Patient received from Pre/Post Procedure Room to CCL 1 Alert and oriented. Tansferred to table in Supine position. 10:44:03 Warm blankets applied, and hugo hugger turned on for patient comfort. 10:44:04 Correct patient and procedure confirmed by team. 10:44:05 ECG and BP/O2 sat monitors applied to patient. 10:49:59 Vital chart was started 10:50:00 Baseline sample Acquired. 10:50:11 Rhythm: sinus bradycardia 10:50:12 Full Disclosure recording started 10:50:17 H&P Date Dictated: 10/17/2018 Within 30 days and on chart., H&P Addendum completed by physician on day of procedure. (MUST COMPLETE FOR ALL OUTPATIENTS). 10:50:18 Pre-procedure instructions explained to patient. 10:50:19 Pre-op teaching completed and patient verbalized understanding. 10:50:20 Family in patients room. 10:50:21 0.9% NaCl 100 ml/hr I.V. was administered by Brittany Belcher RN; used for procedure; 10:50:28 Oxygen 2 l/min etCO2 Nasal cannula was administered by Brittany Belcher RN; used for procedure; 10:50:34 Lidocaine 2% 20ml vial added to field was administered by Daniel Quan MD; for local anesthetic; 10:50:40 Heparin Flush Bag (1000units/500ml NS) 2 bags added to field was administered by Daniel Quan MD; used for procedure; 10:52:53 Is patient on blood thinner?Yes 10:52:56 ACC The patient was administered the following blood thiners within the last 24 hours: ACCPlavix 10:53:00 Is the patient allergic to Iodine/contrast media? No. 10:53:01 Patient diabetic? No. 10:53:10 Previous problem with sedation/anesthesia? No ? 10:53:10 Snore? Yes 10:53:12 Sleep apnea? No 10:53:13 Deviated septum? No 10:53:14 Opens mouth fully? Yes 10:53:15 Sticks out tongue? Yes 10:53:18 Airway obstruction? No ? 10:53:20 Dentures? No ? 10:53:23 Pre procedure: left dorsailis pedis pulse 2+ Normal; easily identifiable; not easily obliterated 10:53:26 Patient pain scale 0/10 ?. 10:53:32 IV patent on arrival in left hand with 0.9% NaCl at O. 10:53:35 Lab results completed and on chart. 10:53:38 Left groin area was prepped with chlora-prep and draped in sterile fashion 10:53:39 Alarms reviewed by R. N. 10:53:39 Sharps counted by scrub and verified by R.N. 10:53:45 Use device set CATH PACK 10:53:46 ACIST Syringe (12371) opened to sterile field. 10:53:46 ACIST Hand Control (34557) opened to sterile field. 10:53:47 ACIST Manifold (12275) opened to sterile field. 10:53:47 Medline Cath Pack ([id number]) opened to sterile field. 10:53:47 Bag Decanter (2002S) opened to sterile field. 10:53:48 EMERALD Guide Wire (907-287) opened to sterile field. 10:54:13 INFLATOR Merit BasixCompak (GS7809) opened to sterile field. 10:54:14 CHOICE PT Extra Support 182cm wire ([id number]) opened to sterile field. 10:58:27 Zero performed for pressure channel P1 11:04:18 Zero performed for pressure channel P1 11:08:45 --------ALL STOP TIME OUT------ 11:08:46 Final Timeout: patient, procedure, and site verified with staff and physician. All members of the team are in agreement. 11:08:48 Left groin site verified by team. 11:08:50 Fire Safety Assessment: A--An alcohol-based skin anteseptic being used preoperatively., C--Open oxygen or nitrous oxide is being used., D--An ESU, laser, or fiber-optic light is being used. 11:08:54 Physical assessment completed. ASA score P 2 - A patient with mild systemic disease as per Daniel Quan MD. 11:09:09 2) 60-89 Mildly reduced kidney function, and other findings (as for stage 1) point to kidney disease. 11:09:11 Maximum allowable contrast dose (3.7 X eGFR X 0.75)216 ml. 11:09:14 Sedation plan: IV Moderate Sedation Medication:Versed, Fentanyl 11:09:22 Versed 2 mg I.V. was administered by Brittany Belcher RN; for sedation; 11:09:32 Fentanyl 50 mcg I.V. was administered by Brittany Belcher RN; for sedation; 11:14:40 Fentanyl 50 mcg I.V. was administered by Brittany Belcher RN; for sedation; 11:14:47 Procedure started. 11:14:50 Local anesthetic to left femerol artery with Lidocaine 2% by Daniel Quan MD.INITIAL ACCESS ONLY 11:14:51 Versed 2 mg I.V. was administered by Brittany Belcher RN; for sedation; 11:15:11 SHEATH 7FR [place] (OHA753) opened to sterile field. 11:15:12 GUIDE 7FR EBU 3.5 SH catheter ([id number]) opened to sterile field. 11:15:30 A 7 Fr Short sheath was inserted into the Left Femoral artery 11:15:44 7 Fr EBU 3.5 guide catheter was inserted over the wire 11:15:45 Heparin Bolus 4000 units I.V. was administered by Brittany Belcher RN; for anticoagulation; verified with Dr. Quan 11:16:31 Guide Catheter removed. unable to cannulate vessel. 11:16:55 GUIDE 7FR EBU 4.0 catheter ([id number]) opened to sterile field. 11:17:03 7 Fr EBU 4 guide catheter was inserted over the wire 11:17:29 CHOICE ES 182 wire advanced. 11:18:04 WIRE ADVANCED ACROSS DIAG 11:20:14 Place stent Inflation Number: 1 A MARCIE RX 2.5 x 12 stent ([id number]) was prepped and advanced across the 1st Diag . The stent was deployed at 15 GAIL for 0:00 (min:sec) . 11:20:25 Wire redirected to LAD. 11:21:34 Inflation number: 1 The stent balloon was then re-inflated across the Mid LAD to 13 GAIL for 0:00 (min:sec) . 11:22:02 Wire redirected to DIAG. 11:22:08 Inflation number: 2 The stent balloon was then re-inflated across the 1st Diag to 7 GAIL for 0:00 (min:sec) . 11:22:25 Stent catheter was removed intact over wire. 11:23:20 IVUS catheter advanced over wire. 11:24:23 IVUS pass to LMCA lesion performed. 11:24:24 IVUS catheter removed over wire. 11:24:34 CHOICE PT Extra Support 182cm wire ([id number]) opened to sterile field. 11:25:15 2ND CHOICE ES ADVANCED ACROSS CIRC 11:26:28 Place stent Inflation Number: 1 A MARCIE RX 3.0 x 08 stent ([id number]) was prepped and advanced across the Prox CX . The stent was deployed at 15 GAIL for 0:00 (min:sec) . 11::34 Stent catheter was removed intact over wire. 11:28:06 Place stent Inflation Number: 2 A MARCIE RX 3.0 x 08 stent ([id number]) was prepped and advanced across the Prox CX . The stent was deployed at 17 GAIL for 0:00 (min:sec) . 11:28:14 Stent catheter was removed intact over wire. 11:28:23 WIRE REMOVED FROM CIRC 11:29:20 Inflation number: 1 The stent balloon was then re-inflated across the LMCA to 15 GAIL for 0:00 (min:sec) . 11:29:40 STENT BALLOON REMOVED 11:30:47 Place stent Inflation Number: 2 A MARCIE RX 4.0 x 12 stent ([id number]) was prepped and advanced across the LMCA . The stent was deployed at 21 GAIL for 0:00 (min:sec) . 11:31:05 Stent catheter was removed intact over wire. 11:31:05 Wire removed. 11:31:06 Guide catheter removed. 11:31:20 EXOSEAL 7Fr (EX700) opened to sterile field. 11:31:38 Sheath removed intact; hemostasis achieved with Exoseal to the Left Femoral artery. 11:32:33 Procedure ended.(Physican Out) 11:34:50 Fluoroscopy time 07.80 minutes. 11:34:55 Flurop Dose total: 745 11:34:55 Fluoroscopy dose: 745 mGy 11:35:01 Dose Area Product 04974 mGy/cm. 11:35:06 Contrast amount:Isovue 300 181ml. 11:35:46 Maximum allowable dose exceeded? No. 11:35:47 Sharps counted by scrub and verified by R.N. 11:35:50 Post-op/insertion site Left Femoral artery dressed using a 4 x 4 and Tegaderm. 11:35:55 Post-procedure physical assessment completed. ASA score P 2 - A patient with mild systemic disease as per Daniel Quan MD. 11:35:57 Post procedure rhythm: unchanged. 11:35:59 Estimated blood loss: 10 ml 11:36:00 Post procedure instruction explained to patient.Patient verbalizes understanding. 11:36:01 Patient needs reinforcement of post procedure teaching. 11:38:03 Procedure and supply charges have been captured, reviewed, submitted and are correct. 11:38:45 Procedure Complication : No complications 11:38:47 Vital chart was stopped 11:38:48 See physician's report for complete and final results. 11:38:49 Report given to Pre/Post Procedure Room. 11:38:52 Patient transfered to Pre/Post Procedure Room with Bed. 11:38:54 Procedure ended. 11:38:54 Full Disclosure recording stopped 11:38:57 End room use (Document Last) Intervention Summary Intervention Notes Time ActionType Lesion and Equipment Used Action# Pressure Duration Attributes 11:20:14 Place stent 1st Diag MARCIE RX 2.5 x 1 15 00:00 12 stent ([id number]) 11:21:34 Reinflate Mid LAD MARCIE RX 2.5 x 1 13 00:00 stent 12 stent balloon ([id number]) 11:22:08 Reinflate 1st Diag MARCIE RX 2.5 x 2 7 00:00 stent 12 stent balloon ([id number]) 11:26:28 Place stent Prox CX MARCIE RX 3.0 x 1 15 00:00 08 stent ([id number]) 11:28:06 Place stent Prox CX MARCIE RX 3.0 x 2 17 00:00 08 stent ([id number]) 11:29:20 Reinflate LMCA MARCIE RX 3.0 x 1 15 00:00 stent 08 stent balloon ([id number]) 11:30:47 Place stent LMCA MARCIE RX 4.0 x 2 21 00:00 12 stent ([id number]) Device Usage Item Name Manufacture Quantity Catalog Number Hospital Part Current M inimal Lot# / Charge Number Stock Stock Serial# Code ACIST Syringe Acist 1 04640 310338 779240 697231 2 0 (18865) Medical Systems Inc ACIST Hand Acist 1 87461 076019 011069 182214 5 Control Medical (57667) Systems Inc ACIST Manifold Acist 1 26776 129086 708965 138176 5 (29653) Medical Systems Inc Medline Cath Medline 1 [id number] 120213 38260 297973 5 Pack ([id number]) Bag Decanter Microtek 1 2001S 868327 40212 831124 5 (2001S) Medical Inc. EMERALD Guide Cardinal 1 502-455 500770 203693 470017 5 Wire (502-455) Health INFLATOR Merit Merit 1 RP5099 934742 569951 636076 1 5 PromptCarewasurespot [facility] (EZ4367) CHOICE PT [place] 2 [id number] 040158 150659 842153 5 Extra Support Scientific 182cm wire ([id number]) SHEATH 7FR Terumo 1 WGA848 663272 348912 911999 5 [place] (LAZ064) GUIDE 7FR EBU Medtronic 1 [id number] 690650 139903 071171 0 3.5 SH catheter ([id number]) GUIDE 7FR EBU Medtronic 1 [id number] 303719 895626 020694 0 4.0 catheter (JT5YGZ65) MARCIE RX 2.5 x Medtronic 1 [id number] 457247 7725343 347056 5 [id number] 12 stent ([id number]) MARCIE RX 3.0 x Medtronic 2 [id number] 901783 7564575 734719 5 [id number] 08 stent [id number] ([id number]) MARCIE RX 4.0 x Medtronic 1 [id number] 414412 7503555 337613 5 [id number] 12 stent ([id number]) EXOSEAL 7Fr Cardinal 1 EX700 507374 981594 338513 5 (EX700) Health Signature Audit [place] Stage Time Signature Unsigned Intra-Procedure 10/17/2018 Jillian Sun 11:40:41 AM RT(R) Signatures Performing Physician : Signature : Daniel Quan MD Date : Time : Monitor : Jillian Sun Signature : RT Date : Time : Nurse : Brittany Belcher RN Signature : Date : Time : [address] [place] [address]
[~2018-10-17 08:52] MED LIST: BAYER CHEWABLE81 MG PO; CARDURA2 MG PO; CARDURA4 MG PO; COREG 3.1253.125 MG PO; COREG6.25 MG PO; PLAVIX75 MG PO; PRAVACHOL40 MG PO; PROSCAR5 MG PO
[2018-10-17 09:17] VITALS: BP 133/49; Ht 177.8 cm; Wt 77.3 kg
[2018-10-17 09:37] LABS: BASOPHILS 0.5 % (0-2); EOSINOPHILS 2.2 % (0-7); HEMATOCRIT 46.5 % (42.0-54.0); HEMOGLOBIN 16.4 g/dL (13.5-17.5); IMMATURE GRANULOCYTES 0.3 % (0-5); LYMPHOCYTES 12.2 % (15-50); MCH 32.8 pg (26.0-34.0); MCHC 35.3 g/dL (31.0-37.0); MEAN PLATELET VOLUME 10.1 fL (7.4-10.4); MONOCYTES 7.5 % (2-11); NEUTROPHILS 77.3 % (40-80); PLATELET COUNT 424 10x3/uL (130-400)
[2018-10-17] MEDS ORDERED: NITRO-DUR0.3 MG TRANSDERM (09:39)
[2018-10-17 09:52] LABS: CALC OSMOLALITY 277 mosm/kg (275-300); CARBON DIOXIDE 21.5 mmol/L (21.0-32.0); CHLORIDE - SERUM 104 mmol/L (98-107); GLUCOSE 111 mg/dL (74-106); POTASSIUM - SERUM 4.3 mmol/L (3.5-5.1); SODIUM 138 mmol/L (136-145); UREA NITROGEN 16 mg/dL (7-18); eGFR NON AFRICAN AMERICAN 78 mL/min (90-120)
[2018-10-17 09:55] LABS: CHOL - HDL RATIO 4.6 ratio (2.3-4.9)
--- NOTE | 2018-10-17 11:46 | NUR ---
PT ARRIVED BY STRETCHER. PLACED ON MONITORS. ASSESSMENT COMPLETED. VSS. NO FAMILY AT THIS TIME. CALL LIGHT WITHIN REACH.
--- NOTE | 2018-10-17 12:00 | NUR ---
LEFT GROIN DRESSING C/D/I. NO S/S OF HEMATOMA NOTED. VSS. FAMILY AT BEDSIDE. WILL CONTINUE TO MONITOR.
--- NOTE | 2018-10-17 12:13 | NUR ---
DR. AVILA AT BEDSIDE AND SPOKE WITH PT AND PT'S .
--- NOTE | 2018-10-17 12:30 | NUR ---
LEFT GROIN DRESSING C/D/I. NO S/S OF HEMATOMA NOTED. VSS. CALL LIGHT WITHIN REACH. TOLERATING SIPS OF WATER. DENIES NAUSEA.
--- NOTE | 2018-10-17 13:08 | NUR ---
PT RESTING COMFORTABLY. VSS. LEFT GROIN DRESSING C/D/I. NO S/S OF HEMATOMA NOTED.
--- NOTE | 2018-10-17 13:38 | NUR ---
PT IN SUPINE POSITION. VSS. LEFT GROIN DRESSING C/D/I. NO S/S OF HEMATOMA NOTED. FAMILY AT BEDSIDE. WILL CONTINUE TO MONITOR.
--- NOTE | 2018-10-17 14:30 | NUR ---
PT'S HEAD OF BED INC TO 30 DEGREES. PT TOLERATED WELL. LEFT GROIN DRESSING C/D/I. NO S/S OF HEMATOMA NOTED. FAMILY AT BEDSIDE. PT SET UP WITH SANDWICH TRAY AND DRINK. DENIES NAUSEA.
--- NOTE | 2018-10-17 15:13 | NUR ---
LEFT ARM PIV D/C'D WITH CATH TIP INTACT. PT TOLERATED WELL. LEFT GROIN DRESSING C/D/I. NO S/S OF HEMATOMA NOTED. PT DRESSED AND AMBULATED TO RESTROOM. VOIDED WITHOUT DIFFICULTY.
--- NOTE | 2018-10-17 15:13 | NUR ---
LEFT ARM PIV D/C'D WITH CATH TIP INTACT. PT TOLERATED WELL. RIGHT GROIN DRESSING C/D/I. NO S/S OF HEMATOMA NOTED. PT DRESSED. AMBULATED TO RESTROOM AND VOIDED WITHOUT DIFFICULTY.
--- NOTE | 2018-10-17 15:20 | NUR ---
DISCUSSED DISCHARGE INSTRUCTIONS WITH PT AND PT'S FAMILY. THEY VOICED UNDERSTANDING.
--- NOTE | 2018-10-17 15:30 | NUR ---
PT TAKEN OUT TO VEHICLE BY WHEELCHAIR. LEFT GROIN DRESSING C/D/I. NO S/S OF HEMATOMA NOTED. NO S/S OF DISTRESS NOTED. ALL BELONGINGS AND PAPERWORK IN HAND.
--- NOTE | 2018-10-21 09:53 | HP ---
PATIENT: AIDA BLACKMON MEDICAL RECORD: [id number] ACCOUNT: [id number] LOCATION:CL : 49 ADMISSION DATE: 10/17/18 PCP: MATILDE MARTINEZ HISTORY AND PHYSICAL EXAMINATION ADMITTING DIAGNOSES: 1. Unstable angina. 2. Coronary artery disease. 3. Recent non-Q-wave myocardial infarction with PTCA stent RCA, concomitant disease of the left main, left circumflex, and LAD. 4. Ischemic cardiomyopathy. 5. Frequent PVCs -- dysrhythmia. HISTORY OF PRESENT ILLNESS: Mr. Blackmon presents with continued anginal symptomatology, presented with a non-Q-wave myocardial infarction last week underwent cardiac catheterization revealing severe 3-vessel disease, underwent successful PTCA stent of the RCA. He has been back in [facility] with continued angina. He had the addition of long-acting nitrates to his beta-kim and calcium channel kim. He has continued to have angina despite maximal medical therapy. He has critical disease of the LAD, circumflex, and left main. He is now brought back for PTCA stent of these territories. PHYSICAL EXAMINATION: GENERAL APPEARANCE: Well-nourished, well-developed, appears stated age. Level of distress, comfortable. PSYCHIATRIC: Mental status, alert, normal affect. Orientation, oriented to time, place and person. EYES: Lids and conjunctiva, noninjected. No discharge, no pallor. ENT: Lips, teeth, gums, normal dentition. Oropharynx, no cyanosis, no pallor. NECK: Carotid arteries, bilateral normal upstroke, no bruits, no thrills. JUGULAR VEINS: No jugular venous pressure or distention. CERVICAL LYMPH NODES: Nontender, nonenlarged. THYROID: Not enlarged. Nontender. No nodules. LUNGS: Respiratory effort, unlabored. CHEST: Normal curvature. No thoracic deformity. No chest wall tenderness. Percussion, resonant. Auscultation, clear. No wheezes, no rales, no rhonchi. CARDIOVASCULAR: Precordial exam, nondisplaced. No heaves or pericardial thrills. Rate and rhythm, regular. Heart sounds, normal S1, normal S2. No S3, no gallop, no rub. Systolic murmur, not heard. Diastolic murmur, not heard. EXTREMITIES: No cyanosis, no edema. Peripheral pulses, full and equal in all extremities, except as noted. No bruits appreciated. ABDOMEN: Soft, nondistended. Normal aorta. No bruit. Nontender. No masses. Liver, nontender, no hepatomegaly. Spleen, nontender, no splenomegaly. MUSCULOSKELETAL: No joint tenderness. No joint swelling. No erythema. NEUROLOGICAL: Normal gait, normal strength, normal tone. SKIN: Warm and dry. OVERALL IMPRESSION: Unstable anginal symptomatology despite maximal medical therapy and known critical coronary artery disease. We will proceed with transcatheter revascularization. TRANSINT:[id number] Voice Confirmation ID: [id number] DOCUMENT ID: [id number] HISTORY AND PHYSICAL [id number] AIDA BLACKMON, SHANTHI PRIETO at 0953 CC: [id number] DICTATION DATE: 10/17/18 1135 PAINT PREPPER: 10/17/18 1149 DEP CLI 10/17/[address] [address]
--- NOTE | 2018-10-21 09:53 | OP ---
PATIENT NAME: AIDA BLACKMON MEDICAL RECORD: [id number] :49 LOCATION:D.CAT ADMISSION DATE: SURGEON: SHANTHI AVILA MD DATE OF OPERATION: 10/17/2018 PROCEDURES: 1. PTCA stent LAD diagonal. 2. PTCA, LAD. 3. PTCA stent left circumflex. 4. PTCA stent left main. 5. Intravascular ultrasound of left main. 6. Selective coronary angiography. INDICATION: Unstable angina, coronary artery disease, and cardiomyopathy. PROCEDURE IN DETAIL: After informed consent was obtained and after a detailed description of risks, benefits as well as alternative therapies, the patient elected to proceed with angiogram and angioplasty. The left femoral area was prepped and draped in normal sterile fashion. Left femoral artery was cannulated via modified Seldinger technique with placement of 7-Portuguese sheath. All catheters exchanged through this sheath. FINDINGS: The left anterior descending diagonal is 95% stenosed. This was addressed with a 2.5 x 12 mm [place]. Result was 0% residual. There was plaque shift into the LAD. The stent balloon was used for ballooning the LAD to 9 atmospheres. Result was 0% residual throughout. Intravascular ultrasound of the left main reveals greater than 75% stenosis of left main. This was addressed with a 4.0 x 12 mm [place] stent taken to 21 atmospheres. Result was 0% residual stenosis. Left circumflex has 90% to 95% stenosis at its ostium. This was addressed with a 3.0 x 8 mm [place]. Result was 0% residual stenosis. OVERALL IMPRESSION: Successful percutaneous transluminal coronary angioplasty stent of the left main, left circumflex, and left anterior descending diagonal going from 77% and 95% initial stenosis to 0% residual. TRANSINT:[id number] Voice Confirmation ID: [id number] DOCUMENT ID: [id number] SHANTHI AVILA MD at 0953 CC: [id number] DICTATION DATE: 10/17/18 1137 CHIEF INVESTIGATOR: 10/17/18 1205 DEP CLI 10/17/18 [place] [id number]
== END 2018-10-17 15:30 | disposition home or self-care (01) ==
LOC: D.CATH 08:52
PROVIDERS: ATTEND Internal Medicine Interventional Cardiology
DX: I25.110 Atherosclerotic heart disease of native coronary artery with unstable angina pectoris (principal); I51.7 Cardiomegaly; Z01.812 Encounter for preprocedural laboratory examination
CPT/HCPCS: 92920; 92978; 93454; C9600 ×3